=== PATIENT | male | born 1935 | race Caucasian/White ===

== ENCOUNTER 2021-01-15 17:30 | Observation (INO) | payer MEDICARE ==
[~2021-01-15] VITALS: Ht 175.3 cm; Wt 76.0 kg
[2021-01-15] MEDS ORDERED: LISINOPRIL20 MG PO (18:34)
[2021-01-15] MEDS ORDERED: NAPROXEN500 MG PO (18:57)
[2021-01-15] MEDS ORDERED: CYCLOBENZAPRINE10 MG PO (18:57)
[2021-01-15 21:55] VITALS: BP 139/83
[2021-01-16 04:00] VITALS: BP 111/63
[2021-01-16 05:53] LABS: HEMATOCRIT 28.5 % (39.0-50.0); HEMOGLOBIN 9.1 g/dl (14.0-18.0); IMMATURE GRANULOCYTES 0.4 % (0.0-5.0); MEAN CELL VOLUME 94.7 fL CALC (80.0-100.0); MEAN CORPUSCULAR HGB 30.2 pG CALC (26.0-32.0); MEAN CORPUSCULAR HGB CONC 31.9 g/dL CAL (32.0-36.0); NEUT# 8.57 thou/uL (1.82-7.42); RED BLOOD COUNT 3.01 mill/uL (4.70-6.10); RED CELL DISTRI WIDTH 13.2 % (11.5-15.5)
[2021-01-16 06:19] LABS: CREATININE 1.9 mg/dL (0.7-1.3); POTASSIUM 4.8 mmol/l (3.5-5.1)
[2021-01-16 08:05] VITALS: BP 137/72
[2021-01-16 15:06] VITALS: BP 151/78
[2021-01-16] MEDS ORDERED: NORVASC5 M1 PO (15:26)
[2021-01-16] MEDS ORDERED: GABAPENTIN100 MG PO (15:27)
[2021-01-16] MEDS ORDERED: COMBIGAN0.2 MG/0.5 OU (15:28)
[2021-01-16 19:10] VITALS: BP 137/71
[2021-01-16 20:19] LABS: URINE BILIRUBIN - DIPSTICK NEGATIVE (NEGATIVE); URINE BLOOD DIPSTICK SMALL (NEGATIVE); URINE CLARITY CLEAR; URINE COLOR YELLOW; URINE GLUCOSE - DIPSTICK NEGATIVE (NEGATIVE); URINE KETONE NEGATIVE (NEGATIVE); URINE LEUK ESTERASE NEGATIVE (Negative); URINE NITRITE - DIPSTICK NEGATIVE (Negative); URINE PH 5.5 (4.5-8.0); URINE PROTEIN - DIPSTICK TRACE mg/dL (NEG-TRACE); URINE SPECIFIC GRAVITY 1.025; URINE UROBILINOGEN - DIPSTICK 0.2 E.U./dL (0.2)
[2021-01-16 20:34] LABS: URINE WBC 0-2 WBC/hpf (0-5)
[2021-01-17 04:53] VITALS: BP 122/73
[2021-01-17 05:42] LABS: HEMATOCRIT 27.2 % (39.0-50.0); HEMOGLOBIN 8.4 g/dl (14.0-18.0); MEAN CELL VOLUME 94.4 fL CALC (80.0-100.0); MEAN CORPUSCULAR HGB 29.2 pG CALC (26.0-32.0); MEAN CORPUSCULAR HGB CONC 30.9 g/dL CAL (32.0-36.0); RED BLOOD COUNT 2.88 mill/uL (4.70-6.10); RED CELL DISTRI WIDTH 13.6 % (11.5-15.5)
[2021-01-17 06:16] LABS: CREATININE 1.9 mg/dL (0.7-1.3); POTASSIUM 4.7 mmol/l (3.5-5.1)
[2021-01-17 08:00] VITALS: BP 110/63
[2021-01-17] MEDS ORDERED: ULTRAM50 MG PO (12:52)
[2021-01-17 14:56] VITALS: BP 118/71
== END 2021-01-17 16:52 ==
LOC: ED 17:30 → ED-I 19:38 → ED 19:39 → MS2 19:40
PROVIDERS: Internal Medicine; Nurse Practitioner; ADMIT Internal Medicine; ATTEND Internal Medicine
DX: S32.591A Other specified fracture of right pubis, initial encounter for closed fracture (principal); I12.9 Hypertensive chronic kidney disease with stage 1 through stage 4 chronic kidney disease, or unspecified chronic kidney disease; N18.9 Chronic kidney disease, unspecified; D64.9 Anemia, unspecified; M19.90 Unspecified osteoarthritis, unspecified site; V86.59XA Driver of other special all-terrain or other off-road motor vehicle injured in nontraffic accident, initial encounter; Y93.89 Activity, other specified; Y92.520 Airport as the place of occurrence of the external cause; Y99.2 Volunteer activity; Z20.822 Contact with and (suspected) exposure to COVID-19